=== PATIENT | male | born 1935 | race Caucasian/White ===

== ENCOUNTER 2017-09-28 12:44 | Emergency (ER) | payer SELFPAY, OTHER, MEDICARE | END 2017-09-28 19:15 | disposition left against medical advice (07) | LOC: E/R 12:44 | DX: Z53.21 Procedure and treatment not carried out due to patient leaving prior to being seen by health care provider (principal) | CPT/HCPCS: 93005 ==

== ENCOUNTER 2017-10-05 09:53 | Inpatient (IN) | payer MEDICARE, OTHER ==
[2017-10-05 10:52] LABS: ADD MAN DIFF? NO
[2017-10-05 10:56] LABS: BASOPHILS % 0.5 % (0.0-2.0); EOSINOPHILS # 0.2 10^3/ul (0.0-0.5); EOSINOPHILS % 3.6 % (0.0-7.0); HEMATOCRIT 29.1 % (42.0-52.0); HEMOGLOBIN 9.4 g/dl (14.0-18.0); LYMPHOCYTES # 0.6 10^3/ul (0.8-2.9); LYMPHOCYTES % 10.9 % (15.0-51.0); MEAN CORPUSCULAR HEMOGLOBIN 30.2 pg (29.0-33.0); MEAN CORPUSCULAR HGB CONC 32.3 g/dl (32.0-37.0); MEAN CORPUSCULAR VOLUME 93.6 fl (82.0-101.0); MEAN PLATELET VOLUME 9.6 fl (7.4-10.4); MONOCYTE # 0.5 10^3/ul (0.3-0.9); MONOCYTES % 8.1 % (0.0-11.0); NEUTROPHIL # 4.3 10^3/ul (1.6-7.5); NEUTROPHILS % 76.5 % (39.0-77.0); PLATELET COUNT 156 10^3/UL (140-415); RED BLOOD COUNT 3.11 10^6/ul (4.70-6.10); RED CELL DISTRIBUTION WIDTH 14.9 % (11.5-14.5)
[2017-10-05 10:56] LABS: WHITE BLOOD COUNT 5.6 10^3/ul (4.8-10.8)
[2017-10-05] MEDS: NITROGLYCERIN 50 MG/D5W (PMX) 250 ML IV (11:07)
[2017-10-05] MEDS: ONDANSETRON 4 MG INJ IV (11:07)
[2017-10-05] MEDS: morphine 2 MG INJ IV (11:07)
[2017-10-05 11:16] LABS: INR 1.21; PROTIME 15.5 Sec (11.9-14.9); PT RATIO 1.2
[2017-10-05 11:17] LABS: ANION GAP 17 (8-16); BLOOD UREA NITROGEN 32 mg/dl (7-20); CALCIUM 8.8 mg/dl (8.4-10.2); CARBON DIOXIDE 29 mmol/L (21-31); CHLORIDE 104 mmol/L (97-110); CREATININE 4.37 mg/dl (0.61-1.24); GLUCOSE 101 mg/dl (70-220); PARTIAL THROMBOPLASTIN TIME 28.2 Sec (25.0-35.0); POTASSIUM 4.2 mmol/L (3.5-5.1); SODIUM 146 mmol/L (135-144)
[2017-10-05 11:32] LABS: TROPONIN-I < 0.012 ng/ml (0.00-0.12)
[2017-10-05] MEDS ORDERED: ONDANSETRON 4 MG INJ IV (12:30)
[2017-10-05] MEDS ORDERED: NACL 0.9% 3 ML SYG IV (12:30)
[2017-10-05] MEDS ORDERED: ACETAMINOPHEN 325 MG TAB PO (12:30)
[2017-10-05] MEDS: HYDROCODONE/APAP (5/325) TAB PO ×2 (12:36→18:54)
[2017-10-05 13:20] LABS: ALANINE AMINOTRANSFERASE 51 IU/L (13-69); ALBUMIN 3.4 g/dl (3.3-4.9); ALKALINE PHOSPHATASE 71 IU/L (42-121); ASPARTATE AMINO TRANSFERASE 31 IU/L (15-46); BILIRUBIN,INDIRECT 0.2 mg/dl (0-1.1); BILIRUBIN,TOTAL 0.2 mg/dl (0.2-1.3); TOTAL PROTEIN 6.2 g/dl (6.1-8.1)
[2017-10-05 13:25] LABS: HEMOGLOBIN A1C 4.7 % (0-5.9)
[2017-10-05] MEDS: hydrALAzine 20 MG INJ IV (14:05)
[2017-10-05] MEDS: HEPARIN 5,000 UNIT/0.5 ML VIAL SC ×2 (14:05→22:22)
[2017-10-05 16:18] LABS: HEPATITIS B SURFACE ANTIGEN NEGATIVE (NEGATIVE)
[2017-10-05 17:10] LABS: CREATINE KINASE 43 IU/L (23-200)
[2017-10-05 17:21] LABS: CK-MB 1.72 ng/ml (0.0-2.4); TROPONIN-I < 0.012 ng/ml (0.00-0.12)
[2017-10-05 17:57] LABS: HEPATITIS B SURFACE ANTIBODY POSITIVE (NEGATIVE)
[2017-10-05] MEDS: HEPARIN 1000 UNITS/ML 10 ML INJ CATHETER (18:25)
[2017-10-05] MEDS: CALCIUM ACETATE 667 MG CAP PO (20:23)
[2017-10-05] MEDS: CREON (24K-76K-120K) 1 CAP PO (20:23)
[2017-10-05] MEDS: METOCLOPRAMIDE 10 MG TAB PO (21:19)
[2017-10-05] MEDS: LABETALOL 100 MG TAB PO (21:19)
[2017-10-05] MEDS: TAMSULOSIN (SR) 0.4 MG CAP PO (22:21)
[2017-10-05 23:59] LABS: CREATINE KINASE 49 IU/L (23-200)
[2017-10-06 00:12] LABS: CK INDEX 3.7; TROPONIN-I 0.016 ng/ml (0.00-0.12)
[2017-10-06 00:14] LABS: CK-MB 1.82 ng/ml (0.0-2.4)
[2017-10-06] MEDS: ZOLPIDEM 5 MG TAB PO (01:40)
[2017-10-06 05:41] LABS: ADD MAN DIFF? NO
[2017-10-06 05:43] LABS: WHITE BLOOD COUNT 5.3 10^3/ul (4.8-10.8)
[2017-10-06 05:43] LABS: BASOPHILS % 0.6 % (0.0-2.0); EOSINOPHILS # 0.2 10^3/ul (0.0-0.5); EOSINOPHILS % 3.9 % (0.0-7.0); HEMATOCRIT 28.6 % (42.0-52.0); HEMOGLOBIN 9.3 g/dl (14.0-18.0); LYMPHOCYTES # 0.9 10^3/ul (0.8-2.9); LYMPHOCYTES % 15.9 % (15.0-51.0); MEAN CORPUSCULAR HEMOGLOBIN 30.4 pg (29.0-33.0); MEAN CORPUSCULAR HGB CONC 32.5 g/dl (32.0-37.0); MEAN CORPUSCULAR VOLUME 93.5 fl (82.0-101.0); MEAN PLATELET VOLUME 9.8 fl (7.4-10.4); MONOCYTE # 0.6 10^3/ul (0.3-0.9); MONOCYTES % 10.5 % (0.0-11.0); NEUTROPHIL # 3.7 10^3/ul (1.6-7.5); NEUTROPHILS % 68.9 % (39.0-77.0); PLATELET COUNT 168 10^3/UL (140-415); RED BLOOD COUNT 3.06 10^6/ul (4.70-6.10); RED CELL DISTRIBUTION WIDTH 14.9 % (11.5-14.5)
[2017-10-06 06:06] LABS: PHOSPHORUS 3.6 mg/dl (2.5-4.9)
[2017-10-06 06:06] LABS: CHOL/HDL RATIO 2.5 RATIO; CHOLESTEROL 121 mg/dl (100-200); HDL CHOLESTEROL 47 mg/dl (31-75); LDL CHOLESTEROL,CALCULATED 56 mg/dl; MAGNESIUM 2.1 mg/dl (1.7-2.5); TRIGLYCERIDES 92 mg/dl (0-149)
[2017-10-06 06:12] LABS: ALANINE AMINOTRANSFERASE 53 IU/L (13-69); ALBUMIN 3.4 g/dl (3.3-4.9); ALKALINE PHOSPHATASE 83 IU/L (42-121); ANION GAP 15 (8-16); ASPARTATE AMINO TRANSFERASE 28 IU/L (15-46); BILIRUBIN,INDIRECT 0.1 mg/dl (0-1.1); BILIRUBIN,TOTAL 0.1 mg/dl (0.2-1.3); BLOOD UREA NITROGEN 25 mg/dl (7-20); CALCIUM 8.4 mg/dl (8.4-10.2); CARBON DIOXIDE 31 mmol/L (21-31); CHLORIDE 102 mmol/L (97-110); GLUCOSE 93 mg/dl (70-220); POTASSIUM 4.1 mmol/L (3.5-5.1); SODIUM 144 mmol/L (135-144)
[2017-10-06] MEDS: HEPARIN 5,000 UNIT/0.5 ML VIAL SC ×3 (07:52→21:26)
[2017-10-06] MEDS: CALCIUM ACETATE 667 MG CAP PO ×3 (07:57→17:58)
[2017-10-06] MEDS: PANTOPRAZOLE (EC) 40 MG TAB PO (07:57)
[2017-10-06] MEDS: NIFEdipine (XL) 60 MG TAB PO (07:58)
[2017-10-06] MEDS: AMIODARONE 200 MG TAB PO (07:58)
[2017-10-06] MEDS: LABETALOL 100 MG TAB PO ×3 (07:59→23:27)
[2017-10-06] MEDS: ISOSORBIDE MONONITRATE(SR)60 MG TAB PO (07:59)
[2017-10-06] MEDS: CREON (24K-76K-120K) 1 CAP PO ×3 (07:59→17:55)
[2017-10-06] MEDS: LABETALOL HCL 20MG INJ IV (13:50)
[2017-10-06] MEDS: METOCLOPRAMIDE 10 MG TAB PO ×4 (13:50→21:21)
[2017-10-06] MEDS: CLOPIDOGREL 75 MG TAB PO (13:50)
[2017-10-06] MEDS: LEVOTHYROXINE 50 MCG TAB PO (15:30)
[2017-10-06] MEDS: TAMSULOSIN (SR) 0.4 MG CAP PO (21:21)
[2017-10-06] MEDS: LORAZEPAM 0.5 MG TAB PO (23:19)
[2017-10-07] MEDS: ZOLPIDEM 5 MG TAB PO (00:59)
[2017-10-07 06:04] LABS: ADD MAN DIFF? NO
[2017-10-07 06:06] LABS: BASOPHILS % 0.6 % (0.0-2.0); EOSINOPHILS # 0.2 10^3/ul (0.0-0.5); EOSINOPHILS % 3.9 % (0.0-7.0); HEMATOCRIT 28.1 % (42.0-52.0); HEMOGLOBIN 9.2 g/dl (14.0-18.0); LYMPHOCYTES # 0.9 10^3/ul (0.8-2.9); LYMPHOCYTES % 17.3 % (15.0-51.0); MEAN CORPUSCULAR HEMOGLOBIN 30.7 pg (29.0-33.0); MEAN CORPUSCULAR HGB CONC 32.7 g/dl (32.0-37.0); MEAN CORPUSCULAR VOLUME 93.7 fl (82.0-101.0); MONOCYTE # 0.6 10^3/ul (0.3-0.9); MONOCYTES % 10.3 % (0.0-11.0); NEUTROPHIL # 3.7 10^3/ul (1.6-7.5); NEUTROPHILS % 67.3 % (39.0-77.0); PLATELET COUNT 167 10^3/UL (140-415); RED CELL DISTRIBUTION WIDTH 14.5 % (11.5-14.5)
[2017-10-07 06:06] LABS: WHITE BLOOD COUNT 5.4 10^3/ul (4.8-10.8)
[2017-10-07] MEDS: HEPARIN 5,000 UNIT/0.5 ML VIAL SC ×3 (06:32→21:34)
[2017-10-07 06:59] LABS: MAGNESIUM 2.2 mg/dl (1.7-2.5)
[2017-10-07 06:59] LABS: PHOSPHORUS 3.7 mg/dl (2.5-4.9)
[2017-10-07] MEDS: METOCLOPRAMIDE 10 MG TAB PO ×4 (07:25→20:38)
[2017-10-07] MEDS: PANTOPRAZOLE (EC) 40 MG TAB PO (07:25)
[2017-10-07 07:33] LABS: ANION GAP 15 (8-16); BLOOD UREA NITROGEN 40 mg/dl (7-20); CALCIUM 8.6 mg/dl (8.4-10.2); CARBON DIOXIDE 28 mmol/L (21-31); CHLORIDE 104 mmol/L (97-110); CREATININE 4.43 mg/dl (0.61-1.24); GLUCOSE 91 mg/dl (70-220); SODIUM 143 mmol/L (135-144)
[2017-10-07] MEDS: NIFEdipine (XL) 60 MG TAB PO (09:00)
[2017-10-07] MEDS: AMIODARONE 200 MG TAB PO (09:00)
[2017-10-07] MEDS: ISOSORBIDE MONONITRATE(SR)60 MG TAB PO (09:00)
[2017-10-07] MEDS: LABETALOL 100 MG TAB PO ×3 (09:00→20:51)
[2017-10-07] MEDS: CALCIUM ACETATE 667 MG CAP PO ×3 (09:36→17:45)
[2017-10-07] MEDS: CREON (24K-76K-120K) 1 CAP PO ×3 (09:36→17:45)
[2017-10-07] MEDS: CLOPIDOGREL 75 MG TAB PO (09:36)
[2017-10-07] MEDS: LEVOTHYROXINE 50 MCG TAB PO (09:37)
[2017-10-07] MEDS ORDERED: HEPARIN 1000 UNITS/ML 10 ML INJ (16:23)
[2017-10-07] MEDS: HEPARIN 1000 UNITS/ML 10 ML INJ CATHETER (16:30)
[2017-10-07] MEDS: TAMSULOSIN (SR) 0.4 MG CAP PO (20:39)
[2017-10-07] MEDS: LISINOPRIL 20 MG TAB PO (21:59)
[2017-10-07] MEDS: AMLODIPINE 10 MG TAB PO (22:00)
[2017-10-07] MEDS: LABETALOL HCL 20MG INJ IV (23:11)
[2017-10-08] MEDS: ZOLPIDEM 5 MG TAB PO ×2 (00:16→23:25)
[2017-10-08] MEDS: NIFEdipine (XL) 60 MG TAB PO (03:54)
[2017-10-08] MEDS: LORAZEPAM 0.5 MG TAB PO (04:00)
[2017-10-08] MEDS: LABETALOL HCL 20MG INJ IV ×4 (04:13→06:47)
[2017-10-08] MEDS: METOCLOPRAMIDE 10 MG TAB PO ×4 (06:35→21:10)
[2017-10-08] MEDS: PANTOPRAZOLE (EC) 40 MG TAB PO (06:35)
[2017-10-08] MEDS: HEPARIN 5,000 UNIT/0.5 ML VIAL SC ×3 (06:47→21:50)
[2017-10-08] MEDS: CLOPIDOGREL 75 MG TAB PO (08:48)
[2017-10-08] MEDS: LEVOTHYROXINE 50 MCG TAB PO (08:48)
[2017-10-08] MEDS: CREON (24K-76K-120K) 1 CAP PO ×3 (08:48→17:59)
[2017-10-08] MEDS: CALCIUM ACETATE 667 MG CAP PO ×3 (08:48→17:59)
[2017-10-08] MEDS: ISOSORBIDE MONONITRATE(SR)60 MG TAB PO (09:00)
[2017-10-08] MEDS: LABETALOL 100 MG TAB PO ×3 (09:00→21:09)
[2017-10-08] MEDS: LISINOPRIL 20 MG TAB PO (09:00)
[2017-10-08] MEDS ORDERED: NIFEdipine (XL) 60 MG TAB PO (09:00)
[2017-10-08] MEDS: HEPARIN 1000 UNITS/ML 10 ML INJ CATHETER (11:56)
[2017-10-08] MEDS: AMIODARONE 200 MG TAB PO (13:46)
[2017-10-08] MEDS: TAMSULOSIN (SR) 0.4 MG CAP PO (21:09)
[2017-10-09] MEDS: HEPARIN 5,000 UNIT/0.5 ML VIAL SC ×3 (06:18→22:09)
[2017-10-09] MEDS: CREON (24K-76K-120K) 1 CAP PO ×3 (08:43→18:21)
[2017-10-09] MEDS: CLOPIDOGREL 75 MG TAB PO (08:43)
[2017-10-09] MEDS: PANTOPRAZOLE (EC) 40 MG TAB PO (08:43)
[2017-10-09] MEDS: LEVOTHYROXINE 50 MCG TAB PO (08:43)
[2017-10-09] MEDS: CALCIUM ACETATE 667 MG CAP PO ×3 (08:43→18:21)
[2017-10-09] MEDS: AMIODARONE 200 MG TAB PO (08:43)
[2017-10-09] MEDS: LABETALOL 100 MG TAB PO ×3 (08:44→20:43)
[2017-10-09] MEDS: LISINOPRIL 20 MG TAB PO (08:44)
[2017-10-09] MEDS: METOCLOPRAMIDE 10 MG TAB PO ×4 (08:44→20:42)
[2017-10-09] MEDS: ISOSORBIDE MONONITRATE(SR)60 MG TAB PO (08:44)
[2017-10-09] MEDS: LORAZEPAM 0.5 MG TAB PO ×2 (11:13→19:45)
[2017-10-09] MEDS: NIFEdipine (XL) 90 MG TAB PO (11:17)
[2017-10-09 15:04] LABS: ALANINE AMINOTRANSFERASE 44 IU/L (13-69); ALBUMIN 3.9 g/dl (3.3-4.9); ALKALINE PHOSPHATASE 75 IU/L (42-121); ANION GAP 19 (8-16); ASPARTATE AMINO TRANSFERASE 29 IU/L (15-46); BLOOD UREA NITROGEN 33 mg/dl (7-20); CALCIUM 9.5 mg/dl (8.4-10.2); CARBON DIOXIDE 26 mmol/L (21-31); CHLORIDE 99 mmol/L (97-110); GLUCOSE 131 mg/dl (70-220); POTASSIUM 4.2 mmol/L (3.5-5.1); SODIUM 140 mmol/L (135-144); TOTAL PROTEIN 6.9 g/dl (6.1-8.1)
[2017-10-09] MEDS: TAMSULOSIN (SR) 0.4 MG CAP PO (20:42)
[2017-10-09] MEDS: ZOLPIDEM 5 MG TAB PO (23:14)
[2017-10-10] MEDS: HEPARIN 5,000 UNIT/0.5 ML VIAL SC ×2 (06:00→14:00)
[2017-10-10] MEDS: METOCLOPRAMIDE 10 MG TAB PO ×2 (07:25→11:58)
[2017-10-10] MEDS: LISINOPRIL 20 MG TAB PO (09:00)
[2017-10-10] MEDS: AMIODARONE 200 MG TAB PO (09:00)
[2017-10-10] MEDS: LABETALOL 100 MG TAB PO ×2 (09:00→12:00)
[2017-10-10] MEDS: ISOSORBIDE MONONITRATE(SR)60 MG TAB PO (09:00)
[2017-10-10] MEDS: NIFEdipine (XL) 90 MG TAB PO (09:00)
[2017-10-10] MEDS: CALCIUM ACETATE 667 MG CAP PO ×2 (09:18→11:57)
[2017-10-10] MEDS: CREON (24K-76K-120K) 1 CAP PO ×2 (09:18→11:58)
[2017-10-10] MEDS: CLOPIDOGREL 75 MG TAB PO (09:18)
[2017-10-10] MEDS: PANTOPRAZOLE (EC) 40 MG TAB PO (09:23)
[2017-10-10] MEDS: LEVOTHYROXINE 50 MCG TAB PO (09:23)
== END 2017-10-10 16:00 | disposition home health service (06) | DRG 291 ==
LOC: TEL 12:05 → E/R 09:53
PROVIDERS: Internal Medicine
PROC: 5A1D70Z Performance of Urinary Filtration, Intermittent, Less than 6 Hours Per Day (ICD-10-PCS; principal; 2017-10-05)
DX: I13.2 Hypertensive heart and chronic kidney disease with heart failure and with stage 5 chronic kidney disease, or end stage renal disease (principal); J96.01 Acute respiratory failure with hypoxia; I50.33 Acute on chronic diastolic (congestive) heart failure; N18.6 End stage renal disease; D63.1 Anemia in chronic kidney disease; E03.9 Hypothyroidism, unspecified; I16.0 Hypertensive urgency; Z79.02 Long term (current) use of antithrombotics/antiplatelets; Z99.2 Dependence on renal dialysis
CPT/HCPCS: 36415; 71045; 80048; 80053; 80061; 80076; 82550; 82553; 83036; 83735; 84100; 84439; 84443; 84484; 85025; 85610; 85730; 86706; 87340; 90935; 93005; 93306; 94660; 96372; 96374; 96375; 97163; 99291-25